=== PATIENT | male | born 1960 | race African-American/Black ===

== ENCOUNTER 2019-09-01 08:13 | Emergency (ER) | payer OTHER ==
[~2019-09-01] VITALS: Ht 170.2 cm; Wt 77.1 kg
[~2019-09-01 08:13] MED LIST: CYCLOBENZAPRINE10 MG ORAL; IBUPROFEN600 MG ORAL; NORCO 5-325 TA1 EACH ORAL
--- NOTE | 2019-09-01 08:26 | NUR ---
ED Nurse Note: Patient in ortho. Patient changed to gown. No obvious bruising swelling or deformity noted to the right side. Patient reports pain level of 6 at present. No reported LOC at time of the fall. Able to weight bear.
--- NOTE | 2019-09-01 08:38 | Emergency Room Report ---
History of Present Illness General Chief Complaint: Multiple Trauma/Fall Source: Patient, Medical Record Present Illness HPI Patient presents with complaints of trip and fall which occurred last night Patient was stepping out of the shower when he slipped he complains of pain to the Right neck and upper shoulder right hip area Denies any chest pain or shortness of breath denies any lapse of consciousness patient reports previous neck surgery with screws in place This was about 3 years ago Denies any focal weakness denies any loss of control of bowel or urination Allergies: Coded Allergies: Cat Dander (Unverified Allergy, Unknown, 03/06/15) Cultivated Oat Pollen (Unverified Allergy, Unknown, 03/06/15) EGG (Unverified Allergy, Unknown, 03/06/15) MILK (Unverified Allergy, Unknown, 03/06/15) Patient History Past Medical History: see triage record Reviewed Nursing Documentation: PMH: Agreed; PSxH: Agreed Nursing Documentation-PMH Hx Hypertension: Yes History Of Psychiatric Problem: Yes - PTSD Review of Systems All Other Systems: negative except mentioned in HPI Physical Exam Vital Signs Date Time Temp Pulse Resp B/P (MAP) Pulse Ox O2 Delivery O2 Flow Rate FiO2 09/01/19 08:17 98.1 89 18 142/89 (106) 97 Room Air Sp02 EP Interpretation: reviewed, normal General Appearance: well appearing, no apparent distress Head: normocephalic, atraumatic Eyes: bilateral eye PERRL, bilateral eye EOMI ENT: hearing grossly normal, normal pharynx Neck: other - Some discomfort right paracervical C3-C4 region some increased muscle tone in the trapezius area Respiratory: normal inspection, no rhonchi, no respiratory distress, no retraction Cardiovascular #1: regular rate, rhythm Gastrointestinal: normal bowel sounds, non tender Musculoskeletal: other - Some discomfort palpable to the right trapezius patient has equal back line cook bilaterally, on both hands able to ambulate discomfort is palpable on the right hip Neurologic: alert, oriented x3, responsive Skin: no rash, palpation normal Lymphatic: no adenopathy Medical Decision Making Diagnostic Impression: Primary Impression: Multiple injuries due to trauma Additional Impressions: Neck strain Back strain ER Course Given the patient's history and presentation multiple differentials and consideration including but not limited to neurological, neurosurgical, orthopedic pathology Patient's C-spine imaging did not show any acute disease Hip x-ray also negative patient ambulatory He does feel significantly better with Acute intervention in the ER and is stable for initial conservative outpatient trial Other X-Ray Diagnostic Results Other X-Ray Diagnostic Results : X-Ray ordered: pelvic # of Views/Limited Vs Complete: 1 View Indication: Pain EP Interpretation: Yes Interpretation: no dislocation, no soft tissue swelling, no fractures Impression: No acute disease Electronically Signed by: Arun Coats DO CT/MRI/US Diagnostic Results CT/MRI/US Diagnostic Results : Impression CT C-spine no acute disease Last Vital Signs Date Time Temp Pulse Resp B/P (MAP) Pulse Ox O2 Delivery O2 Flow Rate FiO2 09/01/19 08:36 16 Room Air 09/01/19 08:17 98.1 89 142/89 (106) 97 Status: improved Disposition: HOME, SELF-CARE Condition: Improved Scripts Methocarbamol* (ROBAXIN-750*) 750 Mg Tablet 750 MG PO TID, #21 TAB 0 Refills Prov: Arun Coats DO 09/01/19 Ibuprofen* (MOTRIN*) 600 Mg Tablet 600 MG ORAL Q8H PRN for For Pain, #20 TAB 0 Refills Prov: Arun Coats DO 09/01/19 Additional Instructions: Patient is provided with the discharge instructions notified to follow up with primary doctor in the next 2-3 days otherwise return to the er with any worsening symptoms. Please note that this report is being documented using PrePlay technology. This can lead to erroneous entry secondary to incorrect interpretation by the dictating instrument. Arun Coats DO Sep 01, 2019 08:38
[2019-09-01] MEDS ORDERED: Methocarbamol 750mg tab ORAL ONE (08:45)
[2019-09-01] MEDS ORDERED: Ketorolac 60mg Inj IM ONE (08:45)
--- NOTE | 2019-09-01 08:53 | NUR ---
ED Nurse Note:Patient seen by doctor medications given as prescribed.
[2019-09-01 09:00] VITALS: BP 131/92
--- NOTE | 2019-09-01 09:01 | NUR ---
ED Nurse Note: Patient awaiting xray and CT. Radiology contacted for transfer.
--- NOTE | 2019-09-01 09:10 | NUR ---
ED Nurse Note: Patient transferred to radiology via wheelchair.
--- NOTE | 2019-09-01 09:30 | NUR ---
ED Nurse Note: Patient retruned from radiology
--- NOTE | 2019-09-01 10:42 | Diagnostic Imaging Report ---
EXAM: CT Cervical Spine Without Intravenous Contrast CLINICAL HISTORY: TRAUMA TECHNIQUE: Axial computed tomography images of the cervical spine without intravenous contrast. Sagittal and coronal reformatted images were created and reviewed. CTDI is 34.20 mGy and DLP is 782.70 mGy-cm. One or more of the following dose reduction techniques were used: automated exposure control, adjustment of the mA and or kV according to patient size, use of iterative reconstruction technique. COMPARISON: Cervical spine x-rays dated 03 06 15 FINDINGS: Vertebrae: No acute fracture or malalignment seen. Status post anterior fixation spanning C5-C7, with anterior plate and screws in place and intervertebral disc spacers. Hardware appears intact, with expected alignment. Incidental note of a discontinuous osteophyte anterior to C4- 5, just superior to the fixation plate. The atlantodens interval remains within normal limits. Discs spinal canal neural foramina: Mild multilevel degenerative disc space loss. Mild right-sided osseous or foraminal stenosis at C3-4. Soft tissues: Incidental note of ossification within the nuchal ligament, at the level of C4. Calcifications within the posterior longitudinal ligament at the level of C4.. IMPRESSION: 1. Status post anterior fixation spanning C5-C7. Hardware appears intact, with expected alignment. 2. No acute fracture or malalignment seen.
--- NOTE | 2019-09-01 10:44 | Diagnostic Imaging Report ---
EXAM: XR Pelvis, 1 or 2 Views CLINICAL HISTORY: TRAUMA TECHNIQUE: Frontal view of the pelvis. COMPARISON: No relevant prior studies available. FINDINGS: Bones joints: Mild degenerative changes at the lumbosacral junction, bilateral SI joints, and bilateral hip joints. The pelvic and obturator rings appear intact. No visible fracture or dislocation. Soft tissues: Unremarkable. Vasculature: Radiodense phleboliths in the pelvis bilaterally. IMPRESSION: No acute findings.
[2019-09-01] MEDS ORDERED: ROBAXIN-750750 MG PO (11:01)
[2019-09-01] MEDS ORDERED: IBUPROFEN600 MG ORAL (11:01)
--- NOTE | 2019-09-01 11:06 | NUR ---
ED Nurse Note: Pt stated pain 3/10 at this time, no adverse reactions with medications given noted or reported. AOOx4, vial signs stable. Pt verbalized understanding of D/C instructions and Rx. Pt ambulates out with steady gait with all belongings.
[2019-09-01 11:07] VITALS: BP 139/90
== END 2019-09-01 11:07 | disposition home or self-care (01) ==
LOC: EMR 09:23
DX: S16.1XXA Strain of muscle, fascia and tendon at neck level, initial encounter (principal); S39.012A Strain of muscle, fascia and tendon of lower back, initial encounter; I10 Essential (primary) hypertension; F43.10 Post-traumatic stress disorder, unspecified; Z91.048 Other nonmedicinal substance allergy status; Z91.012 Allergy to eggs; Z91.011 Allergy to milk products; R10.2 Pelvic and perineal pain; W18.2XXA Fall in (into) shower or empty bathtub, initial encounter; Y93.E1 Activity, personal bathing and showering; Y92.002 Bathroom of unspecified non-institutional (private) residence as the place of occurrence of the external cause
CPT/HCPCS: 72125; 72170; 96372; 99284

== ENCOUNTER 2020-08-13 07:35 | Emergency (ER) | payer OTHER ==
[~2020-08-13] VITALS: Ht 170.2 cm; Wt 77.6 kg
[~2020-08-13 07:35] MED LIST changes: +ROBAXIN-750750 MG PO
[2020-08-13 07:45] VITALS: BP 158/97
[2020-08-13] MEDS ORDERED: AMLODIPINE BESY10 MG ORAL (07:58)
[2020-08-13 07:59] LABS: BASOPHILS % (AUTO) 0.8 % (0.0-2.0); EOSINOPHILS % (AUTO) 2.9 % (0.0-3.0); HEMATOCRIT 41.3 % (42.0-52.0); HEMOGLOBIN 13.8 G/DL (14.2-18.0); LYMPHOCYTES % (AUTO) 24.6 % (20.0-45.0); MEAN CORPUSCULAR VOLUME 95 FL (80-99); MONOCYTES % (AUTO) 10.5 % (1.0-10.0); NEUTROPHILS % (AUTO) 61.3 % (45.0-75.0); PLATELET COUNT 280 K/UL (150-450); RED BLOOD COUNT 4.37 M/UL (4.70-6.10); RED CELL DISTRIBUTION WIDTH 12.3 % (11.6-14.8); WHITE BLOOD COUNT 7.3 K/UL (4.8-10.8)
[2020-08-13 08:10] LABS: ANION GAP 12 mmol/L (5-15); BLOOD UREA NITROGEN 9 mg/dL (7-18); CALCIUM 8.7 MG/DL (8.5-10.1); CARBON DIOXIDE 25 MMOL/L (21-32); CHLORIDE 106 MMOL/L (98-107); POTASSIUM 3.8 MMOL/L (3.5-5.1); SODIUM 143 MMOL/L (136-145)
--- NOTE | 2020-08-13 08:11 | Emergency Room Report ---
History of Present Illness General Chief Complaint: Chest Pain Source: Patient Present Illness HPI This patient states that he has had chest pain for the past 5 days. He states he woke up with the pain. He also feels a "bump" in his left anterior chest. He states the pain has been constant. He states the pain is worse when he bends over. He denies recent illness. He denies fever or chills. He denies nausea or vomiting. He denies trauma. He denies cough or congestion. He denies shortness of breath. He has no other complaints. Allergies: Coded Allergies: Cat Dander (Unverified Allergy, Unknown, 03/06/15) Cultivated Oat Pollen (Unverified Allergy, Unknown, 03/06/15) EGG (Unverified Allergy, Unknown, 03/06/15) MILK (Unverified Allergy, Unknown, 03/06/15) COVID-19 Screening Contact w/high risk pt: No Experienced COVID-19 symptoms?: No COVID-19 Testing performed PHARMACY LABORATORY TECHNICIAN: No - unk Patient History Past Medical History: see triage record, HTN Past Surgical History: other - Back surgery Social History: Reports: alcohol use - moderate; Denies: smoking, drug use Reviewed Nursing Documentation: PMH: Agreed; PSxH: Agreed Nursing Documentation-PMH Past Medical History: No History, Except For Hx Hypertension: Yes Review of Systems All Other Systems: negative except mentioned in HPI Physical Exam Vital Signs Date Time Temp Pulse Resp B/P (MAP) Pulse Ox O2 Delivery O2 Flow Rate FiO2 08/13/20 07:40 98.1 91 18 162/101 (121) 99 Room Air Sp02 EP Interpretation: reviewed, normal General Appearance: no apparent distress, alert, GCS 15, non-toxic Head: normocephalic, atraumatic Eyes: bilateral eye normal inspection, bilateral eye PERRL ENT: hearing grossly normal, normal pharynx, no angioedema, normal voice Neck: full range of motion, supple/symm/no masses Respiratory: lungs clear, normal breath sounds, no respiratory distress, no retraction, no accessory muscle use, speaking full sentences Cardiovascular #1: regular rate, rhythm, no edema Gastrointestinal: normal bowel sounds, non tender, soft, non-distended, no guarding, no rebound Rectal: deferred Musculoskeletal: back normal, normal range of motion, gait/station normal, other - L. anterior chest there is an area that is painful and tender over the L. ribs. Neurologic: alert, motor strength/tone normal, oriented x3, sensory intact, responsive, speech normal Psychiatric: judgement/insight normal, memory normal, mood/affect normal, no suicidal/homicidal ideation Skin: no rash, normal color Medical Decision Making Diagnostic Impression: Primary Impression: Chest pain ER Course This patient has nonspecific chest pain. Given the length of symptoms, this workup is very reassuring with negative cardiac enzymes, normal EKG, and normal chest x-ray. I also obtained a noncontrast CT of the chest for the concern of a "bump" on the patient's rib on the left to assess the bones of the chest as this cannot be assessed by chest x-ray. This was unremarkable. The patient is low risk and his symptoms are atypical for acute coronary syndrome. I have very low suspicion for PE, aortic dissection or pneumothorax based on history/physical, laboratory and radiologic workup. The patient was given close return precautions and followup instructions. Laboratory Tests Test 08/13/20 07:50 08/13/20 08:30 White Blood Count 7.3 K/UL (4.8-10.8) Red Blood Count 4.37 M/UL (4.70-6.10) L Hemoglobin 13.8 G/DL (14.2-18.0) L Hematocrit 41.3 % (42.0-52.0) L Mean Corpuscular Volume 95 FL (80-99) Mean Corpuscular Hemoglobin 31.7 PG (27.0-31.0) H Mean Corpuscular Hemoglobin Concent 33.5 G/DL (32.0-36.0) Red Cell Distribution Width 12.3 % (11.6-14.8) Platelet Count 280 K/UL (150-450) Mean Platelet Volume 7.2 FL (6.5-10.1) Neutrophils (%) (Auto) 61.3 % (45.0-75.0) Lymphocytes (%) (Auto) 24.6 % (20.0-45.0) Monocytes (%) (Auto) 10.5 % (1.0-10.0) H Eosinophils (%) (Auto) 2.9 % (0.0-3.0) Basophils (%) (Auto) 0.8 % (0.0-2.0) Prothrombin Time 11.3 SEC (9.30-11.50) Prothrombin Time INR 1.0 (0.9-1.1) Activated Partial Thromboplast Time 25 SEC (23-33) Sodium Level 143 MMOL/L (136-145) Potassium Level 3.8 MMOL/L (3.5-5.1) Chloride Level 106 MMOL/L (98-107) Carbon Dioxide Level 25 MMOL/L (21-32) Anion Gap 12 mmol/L (5-15) Blood Urea Nitrogen 9 mg/dL (7-18) Creatinine 1.0 MG/DL (0.55-1.30) Estimated Glomerular Filtration Rate > 60 mL/min (>60) Glucose Level 137 MG/DL (74-106) H Calcium Level 8.7 MG/DL (8.5-10.1) Total Bilirubin 0.6 MG/DL (0.2-1.0) Aspartate Amino Transferase (AST) 24 U/L (15-37) Alanine Aminotransferase (ALT) 47 U/L (12-78) Alkaline Phosphatase 61 U/L (46-116) Troponin I 0.000 ng/mL (0.000-0.056) Total Protein 7.8 G/DL (6.4-8.2) Albumin 4.2 G/DL (3.4-5.0) Globulin 3.6 g/dL Albumin/Globulin Ratio 1.2 (1.0-2.7) Urine Color Pale yellow Urine Appearance Clear Urine pH 7 (4.5-8.0) Urine Specific [place] 1.015 (1.005-1.035) Urine Protein Negative (NEGATIVE) Urine Glucose (UA) Negative (NEGATIVE) Urine Ketones Negative (NEGATIVE) Urine Blood Negative (NEGATIVE) Urine Nitrite Negative (NEGATIVE) Urine Bilirubin Negative (NEGATIVE) Urine Urobilinogen Normal MG/DL (0.0-1.0) Urine Leukocyte Esterase Negative (NEGATIVE) Urine Opiates Screen Pending Urine Barbiturates Screen Pending Phencyclidine (PCP) Screen Pending Urine Amphetamines Screen Pending Urine Benzodiazepines Screen Pending Urine Cocaine Screen Pending Urine Marijuana (THC) Screen Pending Rhythm Strip Diag. Results EP Interpretation: yes Rate: SR w/ PACs Rhythm: NSR Other Impression short MN (question WPW) Chest X-Ray Diagnostic Results Chest X-Ray Diagnostic Results : Chest X-Ray Ordered: Yes # of Views/Limited/Complete: 1 View Indication: Chest Pain EP Interpretation: Yes Interpretation: no consolidation, no effusion, no pneumothorax, no acute cardiopulmonary disease Impression: No acute disease Electronically Signed by: Tenisha Marie DO CT/MRI/US Diagnostic Results CT/MRI/US Diagnostic Results : Imaging Test Ordered: CT chest Impression No acute findings. See official report in electronic medical record. Last Vital Signs Date Time Temp Pulse Resp B/P (MAP) Pulse Ox O2 Delivery O2 Flow Rate FiO2 08/13/20 07:45 77 18 Room Air 08/13/20 07:40 98.1 162/101 (121) 99 Status: improved Disposition: HOME, SELF-CARE Condition: Improved Referrals: NOT CHOSEN IPA/,REFERRING (PCP) Patient Instructions: Nonspecific Chest Pain Tenisha Marie DO Aug 13, 2020 08:11
[2020-08-13 08:15] LABS: ALANINE AMINOTRANSFERASE 47 U/L (12-78); ALBUMIN 4.2 G/DL (3.4-5.0); ALBUMIN/GLOBULIN RATIO 1.2 (1.0-2.7); ALKALINE PHOSPHATASE 61 U/L (46-116); ASPARTATE AMINO TRANSFERASE 24 U/L (15-37); BILIRUBIN,TOTAL 0.6 MG/DL (0.2-1.0)
[2020-08-13 08:41] LABS: APPEARANCE,URINE CLEAR; BILIRUBIN, URINE NEGATIVE (NEGATIVE); COLOR,URINE PALE YELLOW; GLUCOSE, URINE (UA) NEGATIVE (NEGATIVE); KETONES,URINE NEGATIVE (NEGATIVE); LEUKOCYTE ESTERASE ,URINE NEGATIVE (NEGATIVE); NITRITE,URINE NEGATIVE (NEGATIVE); PH,URINE 7 (4.5-8.0); PROTEIN,URINE NEGATIVE (NEGATIVE); UROBILINOGEN,URINE NORMAL MG/DL (0.0-1.0)
[2020-08-13 09:47] VITALS: BP 135/92
[2020-08-13] MEDS ORDERED: IBUPROFEN600 M1 ORAL (09:54)
[2020-08-13] MEDS ORDERED: LIDODERM700 M1 TOPIC (09:55)
[2020-08-13 10:12] VITALS: BP 129/93
--- NOTE | 2020-08-13 14:27 | Diagnostic Imaging Report ---
Indication: Chest pain Technique: XRAY Chest 1v Comparison: None Findings: Heart size and mediastinal contours are within normal limits for AP technique. There is no focal airspace consolidation, pneumothorax or pleural effusion. Lower cervical fixation hardware is visualized. Osseous structures demonstrate no acute abnormality. Impression: No radiographic evidence of acute cardiopulmonary disease.
--- NOTE | 2020-08-13 14:33 | Diagnostic Imaging Report ---
Indication: Chest pain Technique: Noncontrast CT of the chest utilizing automated exposure control. Axial, sagittal and coronal reformats presented. CT dose: Total DLP 340.4 mGycm; CTDI vol 7.9 mGy Comparison: None Findings: Please note that evaluation of the ascending and vascular structures is limited without the use of intravenous contrast. Within these limitations the following observations are made: There is no focal airspace consolidation. No pleural effusion, pneumothorax or radiographic evidence of pulmonary edema. Heart size within normal limits. No pericardial effusion. No pathologically enlarged hilar or mediastinal lymphadenopathy. Imaged portions of the thyroid unremarkable in appearance. Imaged portions of the upper abdomen without evidence of acute abnormality. No acute osseous abnormality identified. Specifically, no appreciable/displaced rib fracture. Cervical fixation hardware partially visualized. IMPRESSION: No acute abnormality identified. The CT scanner at [facility] is accredited by the [employer] and the scans are performed using protocols designed to limit radiation exposure to as low as reasonably achievable to attain images of sufficient resolution adequate for diagnostic evaluation.
== END 2020-08-13 10:12 | disposition home or self-care (01) ==
LOC: EMR 07:56
DX: R07.9 Chest pain, unspecified (principal); I10 Essential (primary) hypertension; Z91.012 Allergy to eggs; Z91.011 Allergy to milk products
CPT/HCPCS: 36415; 71045; 71250; 80053; 80307; 81003; 84484; 85025; 85610; 85730; 93005; 99284; J7040

== ENCOUNTER 2021-02-11 07:28 | Emergency (ER) | payer OTHER ==
[~2021-02-11] VITALS: Ht 180.3 cm; Wt 72.6 kg
[~2021-02-11 07:28] MED LIST changes: +AMLODIPINE BESY10 MG ORAL; +IBUPROFEN600 M1 ORAL; +LIDODERM700 M1 TOPIC
[2021-02-11 07:41] VITALS: BP 145/80
--- NOTE | 2021-02-11 07:42 | NUR ---
Patient presents to the ER reporting that he fell into a hole yesterday while walking on the sidewalk and hurt his L ankle- outer aspect. AAOX4 No swelling, redness noted to site. Independently ambulatory
--- NOTE | 2021-02-11 07:55 | Emergency Room Report ---
History of Present Illness General Chief Complaint: Lower Extremity Injury Source: Patient Present Illness HPI Patient is a 60-year-old male who presents for increased left-sided foot and ankle pain. Patient reports having prior history of hypertension, anxiety, low back pain. States that he had been walking and accidentally stepped into a hole with his left foot. Reports that increased left ankle discomfort. Denies any fever. Pain is worse with movement. Allergies: Coded Allergies: Cat Dander (Unverified Allergy, Unknown, 03/06/15) Cultivated Oat Pollen (Unverified Allergy, Unknown, 03/06/15) EGG (Unverified Allergy, Unknown, 03/06/15) MILK (Unverified Allergy, Unknown, 03/06/15) COVID-19 Screening Contact w/high risk pt: No Experienced COVID-19 symptoms?: No COVID-19 Testing performed NUTRITIONIST PUBLIC HEALTH: No Patient History Reviewed Nursing Documentation: PMH: Agreed; PSxH: Agreed Nursing Documentation-PMH Hx Hypertension: Yes Review of Systems All Other Systems: negative except mentioned in HPI Physical Exam Vital Signs Date Time Temp Pulse Resp B/P (MAP) Pulse Ox O2 Delivery O2 Flow Rate FiO2 02/11/21 07:41 98.1 82 16 145/80 (101) 98 Room Air General Appearance: well appearing, no apparent distress, alert, GCS 15 Head: normocephalic, atraumatic ENT: hearing grossly normal, normal voice Neck: full range of motion, supple Respiratory: no respiratory distress, speaking full sentences Cardiovascular #1: normal inspection, no edema Gastrointestinal: normal inspection Musculoskeletal: other - Left lower extremity ankle tenderness without any swelling. Neurologic: alert, human resources recruiter III-XII nml as tested, oriented x3, normal gait Psychiatric: normal inspection, mood/affect normal Skin: no rash Medical Decision Making Diagnostic Impression: Primary Impression: Ankle sprain Additional Impressions: Lumbar back pain Foot sprain ER Course Patient presents for left ankle and foot pain and back pain. Differential diagnosis include was not limited to fracture, contusion, back strain among others. Because of complexity of patient's case imaging studies were ordered. Patient is noted be ambulatory without assistance. Does not appear to have any significant midline tenderness. Left ankle and foot appear to be minimally swollen. Does not appear to be any evidence of ligamentous laxity. Ankle x-rays interpreted by me showed no evidence of acute fracture. Foot x-ray interpreted by me showed no evidence of acute fracture or malalignment. Patient's injury appears to be stable for outpatient management. Patient does not appear to require splinting at this time. Patient is advised to follow-up with his doc tors at the [facility]. He is advised to return if worse. This medical record is generated with [employer] bin piler software. There may be some bin piler discrepancies related to use of this software Last Vital Signs Date Time Temp Pulse Resp B/P (MAP) Pulse Ox O2 Delivery O2 Flow Rate FiO2 02/11/21 07:41 98.1 82 16 145/80 (101) 98 Room Air Status: improved Disposition: HOME, SELF-CARE Condition: Stable Scripts Hydrocodone/Acetaminophen 5-325* (HYDROCODONE/ACETAMINOPHEN 5-325*) 1 Each Tablet 1 TAB ORAL Q8H PRN for For Pain, #10 TAB 0 Refills Prov: Gaston Berrios MD 02/11/21 Methocarbamol* (ROBAXIN-750*) 750 Mg Tablet 750 MG PO TID, #21 TAB 0 Refills Prov: Gaston Berrios MD 02/11/21 Gaston Berrios MD Feb 11, 2021 07:55
[2021-02-11] MEDS ORDERED: ROBAXIN-750750 MG PO (07:58)
[2021-02-11] MEDS ORDERED: HYDROCODON-ACE1 EA15 ORAL (07:59)
--- NOTE | 2021-02-12 08:31 | Diagnostic Imaging Report ---
Indication: Ankle pain after stepping in hole yesterday Technique: 3 views of the left ankle Comparison: none Findings: No acute fracture. No dislocation. Joint spaces are preserved. Impression: Negative
--- NOTE | 2021-02-12 08:32 | Diagnostic Imaging Report ---
Indication: Left foot pain Technique: 3 views left foot Comparison: none Findings: No acute fracture. No dislocation. The joint spaces are preserved. Impression: Negative
== END 2021-02-11 08:34 | disposition home or self-care (01) ==
LOC: EMR 08:10
DX: S93.402A Sprain of unspecified ligament of left ankle, initial encounter (principal); S93.602A Unspecified sprain of left foot, initial encounter; M54.5 Low back pain; I10 Essential (primary) hypertension; F41.9 Anxiety disorder, unspecified; X58.XXXA Exposure to other specified factors, initial encounter; Y92.9 Unspecified place or not applicable; Z91.012 Allergy to eggs; Z91.011 Allergy to milk products
CPT/HCPCS: 99284